=== PATIENT | male | born 1970 | race Caucasian/White ===

== ENCOUNTER 2018-07-09 15:38 | Inpatient (IN) | payer MEDICARE, MEDICAID ==
[2018-07-09] MEDS ORDERED: Lidocaine 2% Gel 5 mL TP ONE ×2 (16:56→17:05)
[2018-07-09 17:25] LABS: % EOSINOPHILS 2.8 % (0.0-5.0); % LYMPHOCYTES 33.4 % (20.0-50.0); % MONOCYTES 7.9 % (2.0-10.0); % NEUTROPHILS 55.9 % (40.0-80.0); EOSINOPHILE ABSOLUTE 0.3 Th/cmm (0.1-0.4); HEMATOCRIT 42.3 % (41.0-60); HEMOGLOBIN 14.2 gm/dL (12-16); LYMPHOCYTE ABSOLUTE 3.5 Th/cmm (1.5-3.0); MEAN CORPUSCULAR HEMOGLOBIN 33.9 pg (26.0-30.0); MEAN CORPUSCULAR HGB CONC 33.5 pg (28.0-36.0); MEAN PLATELET VOLUME 9.3 fl; MONOCYTE ABSOLUTE 0.8 Th/cmm (0.3-1.0); PLATELET COUNT 167 Th/cmm (150-400); RED BLOOD COUNT 4.19 Mil/cmm (4.30-5.70); WHITE BLOOD COUNT 10.6 Th/cmm (4.8-10.8)
[2018-07-09 17:40] LABS: ALB/GLOB RATIO 1.2 (1.0-1.8); ALBUMIN 3.8 gm/dL (4.2-5.5); ALKALINE PHOSPHATASE 56 U/L (34-104); ANION GAP 7.2 (7.0-16.0); BILIRUBIN,TOTAL 0.4 mg/dL (0.3-1.0); BUN - UREA NITROGEN 13 mg/dL (7-25); CALCIUM SERUM 8.9 mg/dL (8.6-10.3); CHLORIDE 96 mEq/L (98-107); CREATININE - SERUM 0.8 mg/dL (0.7-1.3); GFR AFRICAN-AMERICAN > 60.0 ml/min (>90); GFR NON AFRICAN-AMERICAN > 60.0 ml/min; GLUCOSE 91 mg/dL (70-105); MAGNESIUM 1.9 mg/dL (1.9-2.7); PHOSPHOROUS 3.1 mg/dL (2.5-5.0); POTASSIUM SERUM 4.2 mEq/L (3.5-5.1); SGOT 19 U/L (13-39); SGPT/ALT 18 U/L (7-52); SODIUM SERUM 127 mEq/L (136-145); TOTAL PROTEIN,SERUM 6.9 gm/dL (6.0-8.3)
[2018-07-09 18:27] LABS: URINE SOURCE CLEAN C
[2018-07-09 18:30] LABS: URINE BILIRUBIN NEGATIVE (NEGATIVE); URINE BLOOD NEGATIVE (NEGATIVE); URINE GLUCOSE (UA) NEGATIVE (NEGATIVE); URINE KETONE NEGATIVE (NEGATIVE); URINE LEUKOCYTE ESTERASE NEGATIVE (NEGATIVE); URINE NITRATE NEGATIVE (NEGATIVE); URINE PROTEIN NEGATIVE (NEGATIVE); URINE UROBILINOGEN 0.2 E.U./dL (0.2 - 1.0)
[2018-07-09 18:39] LABS: URINE CLARITY CLEAR (CLEAR); URINE COLOR YELLOW; URINE MICROSCOPIC INDICATED? YES
[2018-07-09 18:41] LABS: URINE BACTERIA OCCASIONAL /hpf (NONE SEEN); URINE EPITHELIAL CELLS OCCASIONAL /lpf (FEW); URINE RBC NONE SEEN /hpf (0-5); URINE WBC 0-2 /hpf (0-5)
[2018-07-09] MEDS ORDERED: cefTRIAXone 1 GM in Sodium Chloride 0.9% 50 ML IV ONE (18:45)
[2018-07-09] MEDS ORDERED: Sodium Chloride 0.9% 1,000 ML IV ONE (18:45)
[2018-07-09 18:48] LABS: AMPHETAMINE URINE NEGATIVE (NEGATIVE); BARBITURATES URINE NEGATIVE (NEGATIVE); BENZODIAZEPINES QUAL URINE POSITIVE (NEGATIVE); COCAINE METABOLITE QUAL URINE NEGATIVE (NEGATIVE); METHAMPHETAMINES QUAL URINE NEGATIVE (NEGATIVE); PHENCYCLIDINE (PCP) URINE NEGATIVE (NEGATIVE); TRICYCLICS (TCA) QUAL. URINE POSITIVE (NEGATIVE)
[2018-07-09 18:49] LABS: CANNABINOID THC NEGATIVE (NEGATIVE); METHADONE URINE NEGATIVE (NEGATIVE); OPIATES (MORPHINE) QUAL. URINE NEGATIVE (NEGATIVE)
--- NOTE | 2018-07-09 19:24 | ED Physician Chart ---
ED Chief Complaint/HPI - Patient Information Date Seen:: 07/09/18 Time Seen:: 15:52 Chief Complaint:: self-harming behavior History of Present Illness:: self-harming behavior in a man who was committed to the hospital the last time that he beat his head against the wall. Allergies:: Allergies Allergy/AdvReac Type Severity Reaction Status Date / Time No Known Allergies Allergy Verified 08/30/16 09:44 Vitals:: Vital Signs - 8 hr 07/09/18 15:52 Temp 97.7 F HR 87 RR 16 BP 130/76 O2 Sat % 98 Historian:: EMS, Medical Records Review:: Nurse's Note Reviewed, Transfer documents Reviewed ED Review of Systems - Review of Systems General/Constitutional: No fever, No chills, No weight loss, No weakness, No diaphoresis, No edema, No loss of appetite Skin: Other (right scalp lacerations) Head: No headache, No light-headedness Eyes: No loss of vision, No pain, No diplopia ENT: No earache, No nasal drainage, No sore throat, No tinnitus Neck: No neck pain, No swelling, No thyromegaly, No stiffness, No mass noted Cardio Vascular: No chest pain, No palpitations, No PND, No orthopnea, No edema Pulmonary: No SOB, No cough, No sputum, No wheezing GI: No nausea, No vomiting, No diarrhea, No pain, No melena, No hematochezia, No constipation, No hematemesis G/U: No dysuria, No frequency, No hematuria Musculoskeletal: No bone or joint pain, No back pain, No muscle pain Endocrine: No polyuria, No polydipsia Psychiatric: Prior psych history, No depression, Anxiety, No suicidal ideation, Other (self-harming behavior) Hematopoietic: No bruising, No lymphadenopathy Allergic/Immuno: No urticaria, No angioedema Neurological: No syncope, No focal symptoms, No weakness, No paresthesia, No headache, No seizure, No dizziness, No confusion, No vertigo ED Past Medical History - Past Medical History Obtainable: No Past Medical History: Asthma/COPD, Other (hyperosmolality and hypernatremia; difficulty in walking; muscle weakness) Psychiatricy History: Schizophrenia, Other (schizoaffective disorder; anxiety disorder) Family Medical History - Family Member Mother History Unknown: Yes Ethnicity: Non- ED Physical Exam - Physical Examination General/Constitutional: Awake, Well-developed, well-nourished Other Gen/Cons comments:: states that he has amnesia from slamming his head up against the wall. Other Head comments:: scalp lacerations on the right parietal occipital scalp lacerations that measure a total of 6 cm in length. lacerations are stellate. Eyes: Lids, conjuctiva normal, PERRL, EOMI Skin: Well hydrated Other Skin comments:: sxc ENMT: External ears, nose nl Neck: Nontender, No nuchal rigidity Respiratory: Nl effort/Exclusion, Clear to Auscultation Cardio Vascular: RRR GI: No tenderness/rebounding/guarding : No CVA tenderness Extremities: No tenderness or effusion Neuro/Psych: Alert/oriented Misc: Normal back ED Labs/Radiology/EKG Results - Lab Results Results: Laboratory Tests 07/09/18 07/09/18 07/09/18 17:00 17:00 17:15 WBC 10.6 RBC 4.19 L Hgb 14.2 Hct 42.3 MCV 101.0 H MCH 33.9 H MCHC Differential 33.5 RDW 12.0 Plt Count 167 MPV 9.3 Neutrophils % 55.9 Lymphocytes % 33.4 Monocytes % 7.9 Eosinophils % 2.8 Basophils % 0.0 Sodium Potassium Chloride Carbon Dioxide Anion Gap BUN Creatinine Est GFR ( Amer) Est GFR (Non-Af Amer) BUN/Creatinine Ratio Glucose Calcium Phosphorus Magnesium Total Bilirubin AST ALT Alkaline Phosphatase Total Protein Albumin Globulin Albumin/Globulin Ratio Urine Source CLEAN C Urine Color YELLOW Urine Clarity CLEAR Urine pH 7.0 Ur Specific [place] <= 1.005 Urine Protein NEGATIVE Urine Glucose (UA) NEGATIVE Urine Ketones NEGATIVE Urine Blood NEGATIVE Urine Nitrate NEGATIVE Urine Bilirubin NEGATIVE Urine Urobilinogen 0.2 Ur Leukocyte Esterase NEGATIVE Urine RBC NONE SEEN Urine WBC 0-2 Ur Epithelial Cells OCCASIONAL Urine Bacteria OCCASIONAL Urine Opiates Screen NEGATIVE Urine Methadone Screen NEGATIVE Ur Barbiturates Screen NEGATIVE Ur Tricyclics Screen POSITIVE H Ur Phencyclidine Scrn NEGATIVE Amphetamines Screen NEGATIVE U Methamphetamines Scrn NEGATIVE U Benzodiazepines Scrn POSITIVE H U Cocaine Metab Screen NEGATIVE U Cannabinoids Screen NEGATIVE 07/09/18 17:15 WBC RBC Hgb Hct MCV MCH MCHC Differential RDW Plt Count MPV Neutrophils % Lymphocytes % Monocytes % Eosinophils % Basophils % Sodium 127 L Potassium 4.2 Chloride 96 L Carbon Dioxide 28.0 Anion Gap 7.2 BUN 13 Creatinine 0.8 Est GFR ( Amer) > 60.0 Est GFR (Non-Af Amer) > 60.0 BUN/Creatinine Ratio 16.3 Glucose 91 Calcium 8.9 Phosphorus 3.1 Magnesium 1.9 Total Bilirubin 0.4 AST 19 ALT 18 Alkaline Phosphatase 56 Total Protein 6.9 Albumin 3.8 L Globulin 3.1 Albumin/Globulin Ratio 1.2 Urine Source Urine Color Urine Clarity Urine pH Ur Specific [place] Urine Protein Urine Glucose (UA) Urine Ketones Urine Blood Urine Nitrate Urine Bilirubin Urine Urobilinogen Ur Leukocyte Esterase Urine RBC Urine WBC Ur Epithelial Cells Urine Bacteria Urine Opiates Screen Urine Methadone Screen Ur Barbiturates Screen Ur Tricyclics Screen Ur Phencyclidine Scrn Amphetamines Screen U Methamphetamines Scrn U Benzodiazepines Scrn U Cocaine Metab Screen U Cannabinoids Screen ED Assessment - Assessment General Assessment: patient is resting comfortably. Assessment/Comments:: sign out given to Dr. Warren. I placed the patient on a 5150 72 hour hold since he self-harmed himself, and, according to Petrona Thayer, he was committed to a mental facility when he last slammed his head against the wall. sutures should be removed in 7 to 10 days. wound care should be performed with hydrogen peroxide and antibiotic ointment. sign out given to Dr. Warren at 7:10 p.m. - Procedures Procedures:: scalp lacerations on the right parietal occipital scalp lacerations that measure a total of 6 cm in length. lacerations are stellate. Informed Consent: Procedure/risk/benefits explained by MD: Yes Location:: scalp lacerations on the right parietal occipital scalp lacerations that measure a total of 6 cm in length. lacerations are stellate. Laceration Type:: Complex Wound Length: 6 m Prep/Irrigation:: betadine prep. sterile saline irrigation. Inspection: No dirt/debris, NO FB Local Anesthetic:: 1% lidocaine with epinephrine 4 cc Suture Type and #: 2-0 nylons ED Septic Shock - . Is Septic Shock (SBP<90, OR Lactate>4 mmol\L) present?: No - <6hrs of presentation: Vital Signs: Vital Signs - 8 hr 07/09/18 15:52 Temp 97.7 F HR 87 RR 16 BP 130/76 O2 Sat % 98 ED Reassessment (Disposition) - Reassessment Reassessment Condition:: Unchanged - Diagnosis Diagnosis:: Self-harming behavior Schizoaffective disorder Anxiety disorder Schizophrenia, unspecified. Difficulty in walking Muscle weakness (generalized) - Patient Disposition Condition at Disposition:: Stable, Unchanged
[2018-07-09] MEDS ORDERED: Sodium Chloride 0.9% 1,000 ML IV SCH (22:30)
[2018-07-10 05:11] LABS: % BASOPHILS 0.9 % (0.0-2.0); % EOSINOPHILS 5.8 % (0.0-5.0); % MONOCYTES 12.8 % (2.0-10.0); % NEUTROPHILS 47.5 % (40.0-80.0); BASOPHILE ABSOLUTE 0.1 Th/cumm (0-0.2); EOSINOPHILE ABSOLUTE 0.5 Th/cmm (0.1-0.4); HEMOGLOBIN 14.3 gm/dL (12-16); MEAN CELL VOLUME 98.9 fl (80-99); MEAN CORPUSCULAR HEMOGLOBIN 32.9 pg (26.0-30.0); MEAN CORPUSCULAR HGB CONC 33.3 pg (28.0-36.0); MEAN PLATELET VOLUME 9.6 fl; MONOCYTE ABSOLUTE 1.2 Th/cmm (0.3-1.0); NEUTROPHILE ABSOLUTE 4.2 Th/cmm (1.8-8.0); PLATELET COUNT 170 Th/cmm (150-400); RED BLOOD COUNT 4.35 Mil/cmm (4.30-5.70); RED CELL DISTRIBUTION WIDTH 12.1 % (11.5-20.0)
[2018-07-10 05:34] LABS: ANION GAP 8.2 (7.0-16.0); BUN - UREA NITROGEN 10 mg/dL (7-25); CALCIUM SERUM 8.6 mg/dL (8.6-10.3); CHLORIDE 105 mEq/L (98-107); CHOLESTEROL 104 mg/dL (<200); CREATININE - SERUM 0.7 mg/dL (0.7-1.3); GFR AFRICAN-AMERICAN > 60.0 ml/min (>90); GFR NON AFRICAN-AMERICAN > 60.0 ml/min; GLUCOSE 88 mg/dL (70-105); HDL -HIGH DENSITY LIPOPROTEIN 48 mg/dL (23-92); POTASSIUM SERUM 4.2 mEq/L (3.5-5.1); SODIUM SERUM 134 mEq/L (136-145); TRIGLYCERIDES 131 mg/dL (<150)
--- NOTE | 2018-07-10 08:28 | Diagnostic Imaging Report ---
CT scan of the brain without intravenous contrast HISTORY: Headache, trauma, amnesia Total DLP equals 706 CTDI equals 39.8 Axial sections were obtained from the base of the skull the vertex. There is prominence of the ventricular system along with prominence of cerebral sulci and subarachnoid cisterns reflecting a mild degree of cerebral atrophy. No acute parenchymal abnormalities. No intracerebral hemorrhage. No mass effect or shift of midline structures. No extra-axial masses or abnormal fluid collections. Soft tissue swelling noted over the high right posterior parietal region of the skull. Mild mucosal thickening seen through the ethmoid sinuses. IMPRESSION: 1. No acute intracerebral abnormalities 2. Mild cerebral atrophy 3. Mild mucosal thickening through the ethmoid sinuses 4. Soft tissue swelling over the high right parietal region of the skull.
[2018-07-10 09:52] VITALS: BP 107/74
--- NOTE | 2018-07-10 12:12 | History and Physical ---
History of Present Illness - HPI Chief Complaint: low sodium , psychosis HPI: This is a 47-year old male [facility] unit presented to the ER for self inflicted head laceration, in the ER patient was found with a sodium level of 127. Vital Signs: Last Vital Signs Temp 97.1 F 07/10/18 10:12 Pulse 67 07/10/18 10:12 Resp 18 07/10/18 10:12 BP 128/80 07/10/18 10:12 Pulse Ox 100 07/10/18 10:12 Past Medical History GI: Report: GERD Psych: Report: Psychosis Family Medical History - Family Member Mother History Unknown: Yes Ethnicity: Non- Social History Smoke: 1 pack per day Alcohol: Occassional Drugs: None Lives: Alone - Medications Home Medications: Home Medication Medication Instructions Recorded Type Ferrous Sulfate [Iron] 1 tab PO DAILY 08/30/16 History QUEtiapine Fumarate [SEROquel] 200 mg PO HS 08/30/16 History Sucralfate [Carafate] 1 gm PO TID 08/30/[address] [Depakote DR] 500 mg PO BID 07/09/18 History Fish Oil [[place] 3] 1,000 mg PO DAILY 07/09/18 History Pantoprazole [Protonix] 40 mg PO DAILY 07/09/18 History QUEtiapine Fumarate [SEROquel] 50 mg PO BID 07/09/18 History - Allergies Allergies/Adverse Reactions: Allergies Allergy/AdvReac Type Severity Reaction Status Date / Time No Known Allergies Allergy Verified 08/30/16 09:44 Review of Systems - Review of Systems Constitutional: Report: Weakness Eyes: Report: No Significant Respiratory: Report: No Significant Cardiovascular: Report: No Significant Neurological: Report: Weakness Physical Exam - Physical Exam HEENT: Report: Ears Nose Throat within normal limits Neck: Report: Within normal limits Cardiovascular Systems: Report: +s1/s2 noted, Regular, Rate and Rhythm Respiratory: Report: Breath Sounds are within normal limits Abdomen: Report: Non-tender to palpation Back: Report: Inspection of back is within normal limits. Skin: Report: Color of skin is within normal limits, Warm, Dry Neuro/Psych: Report: Mood affect is within normal limits - Lab Results All Lab Results last 24 hours: Laboratory Results - last 24 hr 07/09/18 07/09/18 07/09/18 17:00 17:00 17:15 WBC 10.6 RBC 4.19 L Hgb 14.2 Hct 42.3 MCV 101.0 H MCH 33.9 H MCHC Differential 33.5 RDW 12.0 Plt Count 167 MPV 9.3 Neutrophils % 55.9 Lymphocytes % 33.4 Monocytes % 7.9 Eosinophils % 2.8 Basophils % 0.0 Sodium Potassium Chloride Carbon Dioxide Anion Gap BUN Creatinine Est GFR ( Amer) Est GFR (Non-Af Amer) BUN/Creatinine Ratio Glucose POC Glucose Calcium Phosphorus Magnesium Total Bilirubin AST ALT Alkaline Phosphatase Total Protein Albumin Globulin Albumin/Globulin Ratio Triglycerides Cholesterol LDL Cholesterol Direct HDL Cholesterol TSH Urine Source CLEAN C Urine Color YELLOW Urine Clarity CLEAR Urine pH 7.0 Ur Specific [place] <= 1.005 Urine Protein NEGATIVE Urine Glucose (UA) NEGATIVE Urine Ketones NEGATIVE Urine Blood NEGATIVE Urine Nitrate NEGATIVE Urine Bilirubin NEGATIVE Urine Urobilinogen 0.2 Ur Leukocyte Esterase NEGATIVE Urine RBC NONE SEEN Urine WBC 0-2 Ur Epithelial Cells OCCASIONAL Urine Bacteria OCCASIONAL Urine Opiates Screen NEGATIVE Urine Methadone Screen NEGATIVE Ur Barbiturates Screen NEGATIVE Ur Tricyclics Screen POSITIVE H Ur Phencyclidine Scrn NEGATIVE Amphetamines Screen NEGATIVE U Methamphetamines Scrn NEGATIVE U Benzodiazepines Scrn POSITIVE H U Cocaine Metab Screen NEGATIVE U Cannabinoids Screen NEGATIVE 07/09/18 07/09/18 07/10/18 17:15 17:15 04:40 WBC 9.0 RBC 4.35 Hgb 14.3 Hct 43.0 MCV 98.9 MCH 32.9 H MCHC Differential 33.3 RDW 12.1 Plt Count 170 MPV 9.6 Neutrophils % 47.5 Lymphocytes % 33.0 Monocytes % 12.8 H Eosinophils % 5.8 H Basophils % 0.9 Sodium 127 L Potassium 4.2 Chloride 96 L Carbon Dioxide 28.0 Anion Gap 7.2 BUN 13 Creatinine 0.8 Est GFR ( Amer) > 60.0 Est GFR (Non-Af Amer) > 60.0 BUN/Creatinine Ratio 16.3 Glucose 91 POC Glucose Calcium 8.9 Phosphorus 3.1 Magnesium 1.9 Total Bilirubin 0.4 AST 19 ALT 18 Alkaline Phosphatase 56 Total Protein 6.9 Albumin 3.8 L Globulin 3.1 Albumin/Globulin Ratio 1.2 Triglycerides Cholesterol LDL Cholesterol Direct HDL Cholesterol TSH 1.48 Urine Source Urine Color Urine Clarity Urine pH Ur Specific [place] Urine Protein Urine Glucose (UA) Urine Ketones Urine Blood Urine Nitrate Urine Bilirubin Urine Urobilinogen Ur Leukocyte Esterase Urine RBC Urine WBC Ur Epithelial Cells Urine Bacteria Urine Opiates Screen Urine Methadone Screen Ur Barbiturates Screen Ur Tricyclics Screen Ur Phencyclidine Scrn Amphetamines Screen U Methamphetamines Scrn U Benzodiazepines Scrn U Cocaine Metab Screen U Cannabinoids Screen 07/10/18 07/10/18 07/10/18 04:40 04:40 07:48 WBC RBC Hgb Hct MCV MCH MCHC Differential RDW Plt Count MPV Neutrophils % Lymphocytes % Monocytes % Eosinophils % Basophils % Sodium 134 L Potassium 4.2 Chloride 105 Carbon Dioxide 25.0 Anion Gap 8.2 BUN 10 Creatinine 0.7 Est GFR ( Amer) > 60.0 Est GFR (Non-Af Amer) > 60.0 BUN/Creatinine Ratio 14.3 Glucose 88 POC Glucose 104 Calcium 8.6 Phosphorus Magnesium Total Bilirubin AST ALT Alkaline Phosphatase Total Protein Albumin Globulin Albumin/Globulin Ratio Triglycerides 131 Cholesterol 104 LDL Cholesterol Direct 36 L HDL Cholesterol 48 TSH 2.70 Urine Source Urine Color Urine Clarity Urine pH Ur Specific [place] Urine Protein Urine Glucose (UA) Urine Ketones Urine Blood Urine Nitrate Urine Bilirubin Urine Urobilinogen Ur Leukocyte Esterase Urine RBC Urine WBC Ur Epithelial Cells Urine Bacteria Urine Opiates Screen Urine Methadone Screen Ur Barbiturates Screen Ur Tricyclics Screen Ur Phencyclidine Scrn Amphetamines Screen U Methamphetamines Scrn U Benzodiazepines Scrn U Cocaine Metab Screen U Cannabinoids Screen - Assessment Assessment: Current Active Problems Problem Status Onset OCCIPITAL LACERATION Acute hyponatremia s/p self inflicted post scalp laceration psychosis - Plan Plan: ivf for hydration nephrology consultation psych consultation 1:1 sitter continue the rest of the orders
[2018-07-10] MEDS: Sodium Chloride 0.9% 1,000 ML IV SCH (13:14)
--- NOTE | 2018-07-10 13:18 | Consultation ---
Consult Note - Consult Note Service Date: 07/10/18 Referring Physician: Adama Pool Consult Note: PHYSICIAN Consultation Note: Date of Admission: 07/09/18 Purpose of Consultation: " Head wound. Chief Complaint: Patient ANTWAN MITCHELL was admitted to [facility] Medical[facility] Surgical Unit I with UTI,HYPONATREMIA. History of Present Illness: 47-year-old male was banging his head and developed wound on right parietal area of his scalp. On initial evaluation, he was afebrile. His WBC count was 10,600. Sepsis workup was negative. Patient is a poor historian. Past Medical History: Unknown at this time. Allergies Allergy/AdvReac Type Severity Reaction Status Date / Time No Known Allergies Allergy Verified 08/30/16 09:44 Vital Signs Temp 97.1 F 07/10/18 10:12 Pulse 67 07/10/18 10:12 Resp 18 07/10/18 10:12 BP 128/80 07/10/18 10:12 Pulse Ox 100 07/10/18 10:12 Intake & Output 07/09/18 07/10/18 07/10/18 18:59 06:59 18:59 Weight (lbs) 68.039 kg 63.957 kg Other: Weight Source Estimated Bedscale Laboratory Results - last 24 hr 07/09/18 07/09/18 07/09/18 17:00 17:00 17:15 WBC 10.6 RBC 4.19 L Hgb 14.2 Hct 42.3 MCV 101.0 H MCH 33.9 H MCHC Differential 33.5 RDW 12.0 Plt Count 167 MPV 9.3 Neutrophils % 55.9 Lymphocytes % 33.4 Monocytes % 7.9 Eosinophils % 2.8 Basophils % 0.0 Sodium Potassium Chloride Carbon Dioxide Anion Gap BUN Creatinine Est GFR ( Amer) Est GFR (Non-Af Amer) BUN/Creatinine Ratio Glucose POC Glucose Calcium Phosphorus Magnesium Total Bilirubin AST ALT Alkaline Phosphatase Total Protein Albumin Globulin Albumin/Globulin Ratio Triglycerides Cholesterol LDL Cholesterol Direct HDL Cholesterol TSH Urine Source CLEAN C Urine Color YELLOW Urine Clarity CLEAR Urine pH 7.0 Ur Specific [place] <= 1.005 Urine Protein NEGATIVE Urine Glucose (UA) NEGATIVE Urine Ketones NEGATIVE Urine Blood NEGATIVE Urine Nitrate NEGATIVE Urine Bilirubin NEGATIVE Urine Urobilinogen 0.2 Ur Leukocyte Esterase NEGATIVE Urine RBC NONE SEEN Urine WBC 0-2 Ur Epithelial Cells OCCASIONAL Urine Bacteria OCCASIONAL Urine Opiates Screen NEGATIVE Urine Methadone Screen NEGATIVE Ur Barbiturates Screen NEGATIVE Ur Tricyclics Screen POSITIVE H Ur Phencyclidine Scrn NEGATIVE Amphetamines Screen NEGATIVE U Methamphetamines Scrn NEGATIVE U Benzodiazepines Scrn POSITIVE H U Cocaine Metab Screen NEGATIVE U Cannabinoids Screen NEGATIVE 07/09/18 07/09/18 07/10/18 17:15 17:15 04:40 WBC 9.0 RBC 4.35 Hgb 14.3 Hct 43.0 MCV 98.9 MCH 32.9 H MCHC Differential 33.3 RDW 12.1 Plt Count 170 MPV 9.6 Neutrophils % 47.5 Lymphocytes % 33.0 Monocytes % 12.8 H Eosinophils % 5.8 H Basophils % 0.9 Sodium 127 L Potassium 4.2 Chloride 96 L Carbon Dioxide 28.0 Anion Gap 7.2 BUN 13 Creatinine 0.8 Est GFR ( Amer) > 60.0 Est GFR (Non-Af Amer) > 60.0 BUN/Creatinine Ratio 16.3 Glucose 91 POC Glucose Calcium 8.9 Phosphorus 3.1 Magnesium 1.9 Total Bilirubin 0.4 AST 19 ALT 18 Alkaline Phosphatase 56 Total Protein 6.9 Albumin 3.8 L Globulin 3.1 Albumin/Globulin Ratio 1.2 Triglycerides Cholesterol LDL Cholesterol Direct HDL Cholesterol TSH 1.48 Urine Source Urine Color Urine Clarity Urine pH Ur Specific [place] Urine Protein Urine Glucose (UA) Urine Ketones Urine Blood Urine Nitrate Urine Bilirubin Urine Urobilinogen Ur Leukocyte Esterase Urine RBC Urine WBC Ur Epithelial Cells Urine Bacteria Urine Opiates Screen Urine Methadone Screen Ur Barbiturates Screen Ur Tricyclics Screen Ur Phencyclidine Scrn Amphetamines Screen U Methamphetamines Scrn U Benzodiazepines Scrn U Cocaine Metab Screen U Cannabinoids Screen 07/10/18 07/10/18 07/10/18 04:40 04:40 07:48 WBC RBC Hgb Hct MCV MCH MCHC Differential RDW Plt Count MPV Neutrophils % Lymphocytes % Monocytes % Eosinophils % Basophils % Sodium 134 L Potassium 4.2 Chloride 105 Carbon Dioxide 25.0 Anion Gap 8.2 BUN 10 Creatinine 0.7 Est GFR ( Amer) > 60.0 Est GFR (Non-Af Amer) > 60.0 BUN/Creatinine Ratio 14.3 Glucose 88 POC Glucose 104 Calcium 8.6 Phosphorus Magnesium Total Bilirubin AST ALT Alkaline Phosphatase Total Protein Albumin Globulin Albumin/Globulin Ratio Triglycerides 131 Cholesterol 104 LDL Cholesterol Direct 36 L HDL Cholesterol 48 TSH 2.70 Urine Source Urine Color Urine Clarity Urine pH Ur Specific [place] Urine Protein Urine Glucose (UA) Urine Ketones Urine Blood Urine Nitrate Urine Bilirubin Urine Urobilinogen Ur Leukocyte Esterase Urine RBC Urine WBC Ur Epithelial Cells Urine Bacteria Urine Opiates Screen Urine Methadone Screen Ur Barbiturates Screen Ur Tricyclics Screen Ur Phencyclidine Scrn Amphetamines Screen U Methamphetamines Scrn U Benzodiazepines Scrn U Cocaine Metab Screen U Cannabinoids Screen Home Medication Medication Instructions Recorded Type Ferrous Sulfate [Iron] 1 tab PO DAILY 08/30/16 History QUEtiapine Fumarate [SEROquel] 200 mg PO HS 08/30/16 History Sucralfate [Carafate] 1 gm PO TID 08/30/[address] [Depakote DR] 500 mg PO BID 07/09/18 History Fish Oil [[place] 3] 1,000 mg PO DAILY 07/09/18 History Pantoprazole [Protonix] 40 mg PO DAILY 07/09/18 History QUEtiapine Fumarate [SEROquel] 50 mg PO BID 07/09/18 History Current Medications Generic Name Dose Route Start Last Admin Trade Name Freq PRN Reason Stop Dose Admin Divalproex Sodium 500 mg 07/10/18 17:[address] PO 09/08/18 16:59 BID [facility] Protocol Ferrous Sulfate 325 mg 07/11/18 09:00 Iron PO 09/09/18 08:59 DAILY [facility] Fish Oil 1,000 mg 07/11/18 09:00 [place] 3 PO 09/09/18 08:59 DAILY [facility] Sodium Chloride 1,000 mls @ 40 mls/hr 07/10/18 10:45 Nacl 0.9% IV 09/08/18 10:44 .Q24H ANIL Pantoprazole Sodium 40 mg 07/11/18 09:00 Protonix PO 09/09/18 08:59 DAILY [facility] Quetiapine Fumarate 200 mg 07/10/18 21:00 Seroquel PO 09/08/18 20:59 HS [facility] Protocol Quetiapine Fumarate 50 mg 07/10/18 17:00 Seroquel PO 09/08/18 16:59 BID [facility] Protocol Sucralfate 1 gm 07/10/18 14:00 Carafate PO 09/08/18 13:59 TID [facility] Review of Systems: A 12 point ROS was reviewed with the pertinent positive and negatives noted in the HPI. Social History Smoking Status Unknown if ever smoked Alcohol: Unknown. Family Medical History Unknown. Physical Exam: General: Comfortable lean and thin male area and a poor hygiene. HEENT: Head: Normocytic. Has traumatic wound on right parietal area Oral cavity : Moist, pink tongue. Eyes: Pallor is present icterus. Neck: Supple, no JVD. No use of X his neck muscles. Cardio: S1 and S2 within normal limits regular rhythm. Respiratory: Vesicular breath sound. No crackles no wheezing. Abdominal: Soft, nontender nondistended bowel sounds present. Genital/Urinary: Deferred. Extremities: No cyanosis, no clubbing no edema. Neurological: Alert, awake. Communicates well. Assessment: 1. Head wound. 2. Psychosis. Plan: No need of antibiotic at this time. Wound care. Patient has very poor hygiene and he needs to maintain good hygiene. Thank you, Dr. Pool, for involving me in taking care of this patient Signed, Malick Villegas M.D. [id number]
--- NOTE | 2018-07-10 20:27 | Consultation ---
DATE OF CONSULTATION: 07/10/2018 PSYCHIATRIC CONSULTATION PHYSICIAN REQUESTING CONSULTATION: Dr. Coronel. REASON FOR CONSULTATION: Psychosis. HISTORY OF PRESENT ILLNESS: This patient is a 47-year-old male, resident of [facility]. The patient is reported to have been agitated and self-abusive and has been hitting his head on the wall and ____ a laceration of the head. The patient is also at the time of the evaluation has been found to have a low sodium of 127. At the time of the evaluation, the patient has been on Seroquel and Depakote, but the patient is stating that he does not need any medications. PAST PSYCHIATRIC HISTORY: The patient had been hospitalized in the past, but the patient is not able to provide the details. MEDICAL HISTORY AND PHYSICAL EXAMINATION: Done by Dr. Meron Pollard and is noted to be significant for hyponatremia and laceration on the head. LEGAL PROBLEMS: None at this time. PHYSICAL OR SEXUAL ABUSE HISTORY: None. STRENGTHS AND ASSETS: The patient is motivated. MENTAL STATUS EXAMINATION: The patient is a 47-year-old disheveled, thin built, superficially cooperative. Eye contact is poor. Mood is noted to be irritable. Affect is constricted. Insight and judgment at this time are noted to be still impaired. Impulse control is noted to be limited. The patient has been having difficult time to cope with the stress. The patient is on 1:1 observation because of the suicidal ideation and self-abusive behavior. DIAGNOSTIC IMPRESSION: AXIS I: Schizoaffective disorder. IMMEDIATE TREATMENT PLAN: The patient is going to be observed on the inpatient unit. Continued on the Seroquel and Depakote. ESTIMATED LENGTH OF STAY: 3-5 days. DISCHARGE CRITERIA: When the patient is no longer a threat to self or others and be able to cope up with the stress. JOB# [id number]
[2018-07-11 05:49] LABS: % BASOPHILS 4.2 % (0.0-2.0); % EOSINOPHILS 5.3 % (0.0-5.0); % LYMPHOCYTES 28.8 % (20.0-50.0); % MONOCYTES 12.7 % (2.0-10.0); BASOPHILE ABSOLUTE 0.4 Th/cumm (0-0.2); EOSINOPHILE ABSOLUTE 0.5 Th/cmm (0.1-0.4); HEMOGLOBIN 14.4 gm/dL (12-16); LYMPHOCYTE ABSOLUTE 2.9 Th/cmm (1.5-3.0); MEAN CELL VOLUME 98.9 fl (80-99); MEAN CORPUSCULAR HEMOGLOBIN 33.1 pg (26.0-30.0); MEAN CORPUSCULAR HGB CONC 33.4 pg (28.0-36.0); MEAN PLATELET VOLUME 9.8 fl; MONOCYTE ABSOLUTE 1.3 Th/cmm (0.3-1.0); NEUTROPHILE ABSOLUTE 4.8 Th/cmm (1.8-8.0); PLATELET COUNT 164 Th/cmm (150-400); RED BLOOD COUNT 4.34 Mil/cmm (4.30-5.70); RED CELL DISTRIBUTION WIDTH 11.9 % (11.5-20.0); WHITE BLOOD COUNT 9.9 Th/cmm (4.8-10.8)
[2018-07-11 06:06] LABS: ALB/GLOB RATIO 1.2 (1.0-1.8); ALBUMIN 3.5 gm/dL (4.2-5.5); ALKALINE PHOSPHATASE 51 U/L (34-104); ANION GAP 7.6 (7.0-16.0); BILIRUBIN,TOTAL 0.4 mg/dL (0.3-1.0); BUN - UREA NITROGEN 10 mg/dL (7-25); CALCIUM SERUM 8.5 mg/dL (8.6-10.3); CARBON DIOXIDE 25.5 mEq/L (21.0-31.0); CHLORIDE 103 mEq/L (98-107); CREATININE - SERUM 0.6 mg/dL (0.7-1.3); GFR AFRICAN-AMERICAN > 60.0 ml/min (>90); GFR NON AFRICAN-AMERICAN > 60.0 ml/min; GLUCOSE 93 mg/dL (70-105); POTASSIUM SERUM 4.1 mEq/L (3.5-5.1); SGOT 15 U/L (13-39); SGPT/ALT 16 U/L (7-52); SODIUM SERUM 132 mEq/L (136-145); TOTAL PROTEIN,SERUM 6.4 gm/dL (6.0-8.3); URIC ACID 3.8 mg/dL (4.4-7.6)
[2018-07-11] MEDS: Pantoprazole 40 mg EC Tab PO SCH (08:51)
[2018-07-11] MEDS: Fish Oil 1,000 MG SGL PO SCH (08:51)
[2018-07-11] MEDS: Ferrous Sulfate 325 MG TAB PO SCH (08:52)
--- NOTE | 2018-07-11 11:36 | Internal Medicine Prog Note ---
Internal Medicine Subjective - Subjective Patient seen and examined:: other (laceration in scalp) Patient is:: awake Per staff patient has:: no adverse event Internal Medicine Objective - Results Result Diagrams: 07/11/18 05:20 07/11/18 05:20 Recent Labs: Laboratory Last Values WBC 9.9 Th/cmm (4.8-10.8) 07/11/18 05:20 RBC 4.34 Mil/cmm (4.30-5.70) 07/11/18 05:20 Hgb 14.4 gm/dL (12-16) 07/11/18 05:20 Hct 43.0 % (41.0-60) 07/11/18 05:20 MCV 98.9 fl (80-99) 07/11/18 05:20 MCH 33.1 pg (26.0-30.0) H 07/11/18 05:20 MCHC Differential 33.4 pg (28.0-36.0) 07/11/18 05:20 RDW 11.9 % (11.5-20.0) 07/11/18 05:20 Plt Count 164 Th/cmm (150-400) 07/11/18 05:20 MPV 9.8 fl 07/11/18 05:20 Neutrophils % 49.0 % (40.0-80.0) 07/11/18 05:20 Lymphocytes % 28.8 % (20.0-50.0) 07/11/18 05:20 Monocytes % 12.7 % (2.0-10.0) H 07/11/18 05:20 Eosinophils % 5.3 % (0.0-5.0) H 07/11/18 05:20 Basophils % 4.2 % (0.0-2.0) H 07/11/18 05:20 Sodium 132 mEq/L (136-145) L 07/11/18 05:20 Potassium 4.1 mEq/L (3.5-5.1) 07/11/18 05:20 Chloride 103 mEq/L (98-107) 07/11/18 05:20 Carbon Dioxide 25.5 mEq/L (21.0-31.0) 07/11/18 05:20 Anion Gap 7.6 (7.0-16.0) 07/11/18 05:20 BUN 10 mg/dL (7-25) 07/11/18 05:20 Creatinine 0.6 mg/dL (0.7-1.3) L 07/11/18 05:20 Est GFR ( Amer) > 60.0 ml/min (>90) 07/11/18 05:20 Est GFR (Non-Af Amer) > 60.0 ml/min 07/11/18 05:20 BUN/Creatinine Ratio 16.7 07/11/18 05:20 Glucose 93 mg/dL (70-105) 07/11/18 05:20 POC Glucose 104 MG/DL (70 - 105) 07/10/18 07:48 Uric Acid 3.8 mg/dL (4.4-7.6) L 07/11/18 05:20 Calcium 8.5 mg/dL (8.6-10.3) L 07/11/18 05:20 Phosphorus 3.1 mg/dL (2.5-5.0) 07/09/18 17:15 Magnesium 1.9 mg/dL (1.9-2.7) 07/09/18 17:15 Total Bilirubin 0.4 mg/dL (0.3-1.0) 07/11/18 05:20 AST 15 U/L (13-39) 07/11/18 05:20 ALT 16 U/L (7-52) 07/11/18 05:20 Alkaline Phosphatase 51 U/L (34-104) 07/11/18 05:20 Total Protein 6.4 gm/dL (6.0-8.3) 07/11/18 05:20 Albumin 3.5 gm/dL (4.2-5.5) L 07/11/18 05:20 Globulin 2.9 gm/dL 07/11/18 05:20 Albumin/Globulin Ratio 1.2 (1.0-1.8) 07/11/18 05:20 Triglycerides 131 mg/dL (<150) 07/10/18 04:40 Cholesterol 104 mg/dL (<200) 07/10/18 04:40 LDL Cholesterol Direct 36 mg/dL (75-193) L 07/10/18 04:40 HDL Cholesterol 48 mg/dL (23-92) 07/10/18 04:40 TSH 2.70 uIU/ml (0.34-5.60) 07/10/18 04:40 Urine Source CLEAN C 07/09/18 17:00 Urine Color YELLOW 07/09/18 17:00 Urine Clarity CLEAR (CLEAR) 07/09/18 17:00 Urine pH 7.0 (4.6 - 8.0) 07/09/18 17:00 Ur Specific [place] <= 1.005 (1.005-1.030) 07/09/18 17:00 Urine Protein NEGATIVE mg/dL (NEGATIVE) 07/09/18 17:00 Urine Glucose (UA) NEGATIVE mg/dL (NEGATIVE) 07/09/18 17:00 Urine Ketones NEGATIVE mg/dL (NEGATIVE) 07/09/18 17:00 Urine Blood NEGATIVE (NEGATIVE) 07/09/18 17:00 Urine Nitrate NEGATIVE (NEGATIVE) 07/09/18 17:00 Urine Bilirubin NEGATIVE (NEGATIVE) 07/09/18 17:00 Urine Urobilinogen 0.2 E.U./dL (0.2 - 1.0) 07/09/18 17:00 Ur Leukocyte Esterase NEGATIVE (NEGATIVE) 07/09/18 17:00 Urine RBC NONE SEEN /hpf (0-5) 07/09/18 17:00 Urine WBC 0-2 /hpf (0-5) 07/09/18 17:00 Ur Epithelial Cells OCCASIONAL /lpf (FEW) 07/09/18 17:00 Urine Bacteria OCCASIONAL /hpf (NONE SEEN) 07/09/18 17:00 Urine Opiates Screen NEGATIVE (NEGATIVE) 07/09/18 17:00 Urine Methadone Screen NEGATIVE (NEGATIVE) 07/09/18 17:00 Ur Barbiturates Screen NEGATIVE (NEGATIVE) 07/09/18 17:00 Ur Tricyclics Screen POSITIVE (NEGATIVE) H 07/09/18 17:00 Ur Phencyclidine Scrn NEGATIVE (NEGATIVE) 07/09/18 17:00 Amphetamines Screen NEGATIVE (NEGATIVE) 07/09/18 17:00 U Methamphetamines Scrn NEGATIVE (NEGATIVE) 07/09/18 17:00 U Benzodiazepines Scrn POSITIVE (NEGATIVE) H 07/09/18 17:00 U Cocaine Metab Screen NEGATIVE (NEGATIVE) 07/09/18 17:00 U Cannabinoids Screen NEGATIVE (NEGATIVE) 07/09/18 17:00 - Physical Exam Vitals and I&O: Vital Signs Temp 98.0 F 07/11/18 08:00 Pulse 68 07/11/18 08:00 Resp 18 07/11/18 08:00 BP 110/63 07/11/18 08:00 Pulse Ox 100 07/11/18 08:00 Intake & Output 07/10/18 07/11/18 07/11/18 18:59 06:59 18:59 Intake Total 600 240 Balance 600 240 Weight (lbs) 63.957 kg 63.957 kg Intake: Oral 600 240 Other: # Voids 5 3 # Bowel Movements 0 1 Weight Source Bedscale Bedscale Active Medications: Current Medications Divalproex Sodium (Depakote Dr) 500 mg PO BID [facility]; Protocol Stop: 09/08/18 16:59 Last Admin: 07/11/18 08:51 Dose: 500 mg Ferrous Sulfate (Iron) 325 mg PO DAILY [facility] Stop: 09/09/18 08:59 Last Admin: 07/11/18 08:52 Dose: 325 mg Fish Oil ([place] 3) 1,000 mg PO DAILY [facility] Stop: 09/09/18 08:59 Last Admin: 07/11/18 08:51 Dose: 1,000 mg Sodium Chloride (Nacl 0.9%) 1,000 mls @ 40 mls/hr IV .Q24H [facility] Stop: 09/08/18 10:44 Last Admin: 07/10/18 13:14 Dose: 40 mls/hr Pantoprazole Sodium (Protonix) 40 mg PO DAILY [facility] Stop: 09/09/18 08:59 Last Admin: 07/11/18 08:51 Dose: 40 mg Quetiapine Fumarate (Seroquel) 200 mg PO HS [facility]; Protocol Stop: 09/08/18 20:59 Quetiapine Fumarate (Seroquel) 50 mg PO BID [facility]; Protocol Stop: 09/08/18 16:59 Last Admin: 07/11/18 08:51 Dose: 50 mg Sucralfate (Carafate) 1 gm PO TID [facility] Stop: 09/08/18 13:59 Last Admin: 07/11/18 08:52 Dose: 1 gm General: alert Neck: Supple Lungs: CTAB Cardiovascular: Normal S1, Normal S2 Abdomen: soft, non-tender Extremities: clear, no edema Neurological: no change - Procedures Procedures: Procedures Procedure Code Date EGD DIAGNOSTIC BRUSH WASH 01508 06/02/11 INJECT/INFUSE NEC 99.29 07/18/12 OTHER ENDOSCOPY OF SM INTEST 45.13 06/02/11 PACKED CELL TRANSFUSION 99.04 03/22/11 THER/PROPH/DIAG INJ SC/IM 89953 07/18/12 Internal Medicine Assmt/Plan - Assessment Assessment: scalp laceration psychosis - Plan Plan: cpm
--- NOTE | 2018-07-11 13:23 | Infectious Disease Prog Note ---
Infectious Disease Subjective - Review of Systems Service Date: 07/11/18 Subjective: There is no new change, no fever. Infectious Disease Objective - Results Result Diagrams: 07/11/18 05:20 07/11/18 05:20 Recent Labs: Laboratory Last Values WBC 9.9 Th/cmm (4.8-10.8) 07/11/18 05:20 RBC 4.34 Mil/cmm (4.30-5.70) 07/11/18 05:20 Hgb 14.4 gm/dL (12-16) 07/11/18 05:20 Hct 43.0 % (41.0-60) 07/11/18 05:20 MCV 98.9 fl (80-99) 07/11/18 05:20 MCH 33.1 pg (26.0-30.0) H 07/11/18 05:20 MCHC Differential 33.4 pg (28.0-36.0) 07/11/18 05:20 RDW 11.9 % (11.5-20.0) 07/11/18 05:20 Plt Count 164 Th/cmm (150-400) 07/11/18 05:20 MPV 9.8 fl 07/11/18 05:20 Neutrophils % 49.0 % (40.0-80.0) 07/11/18 05:20 Lymphocytes % 28.8 % (20.0-50.0) 07/11/18 05:20 Monocytes % 12.7 % (2.0-10.0) H 07/11/18 05:20 Eosinophils % 5.3 % (0.0-5.0) H 07/11/18 05:20 Basophils % 4.2 % (0.0-2.0) H 07/11/18 05:20 Sodium 132 mEq/L (136-145) L 07/11/18 05:20 Potassium 4.1 mEq/L (3.5-5.1) 07/11/18 05:20 Chloride 103 mEq/L (98-107) 07/11/18 05:20 Carbon Dioxide 25.5 mEq/L (21.0-31.0) 07/11/18 05:20 Anion Gap 7.6 (7.0-16.0) 07/11/18 05:20 BUN 10 mg/dL (7-25) 07/11/18 05:20 Creatinine 0.6 mg/dL (0.7-1.3) L 07/11/18 05:20 Est GFR ( Amer) > 60.0 ml/min (>90) 07/11/18 05:20 Est GFR (Non-Af Amer) > 60.0 ml/min 07/11/18 05:20 BUN/Creatinine Ratio 16.7 07/11/18 05:20 Glucose 93 mg/dL (70-105) 07/11/18 05:20 POC Glucose 104 MG/DL (70 - 105) 07/10/18 07:48 Uric Acid 3.8 mg/dL (4.4-7.6) L 07/11/18 05:20 Calcium 8.5 mg/dL (8.6-10.3) L 07/11/18 05:20 Phosphorus 3.1 mg/dL (2.5-5.0) 07/09/18 17:15 Magnesium 1.9 mg/dL (1.9-2.7) 07/09/18 17:15 Total Bilirubin 0.4 mg/dL (0.3-1.0) 07/11/18 05:20 AST 15 U/L (13-39) 07/11/18 05:20 ALT 16 U/L (7-52) 07/11/18 05:20 Alkaline Phosphatase 51 U/L (34-104) 07/11/18 05:20 Total Protein 6.4 gm/dL (6.0-8.3) 07/11/18 05:20 Albumin 3.5 gm/dL (4.2-5.5) L 07/11/18 05:20 Globulin 2.9 gm/dL 07/11/18 05:20 Albumin/Globulin Ratio 1.2 (1.0-1.8) 07/11/18 05:20 Triglycerides 131 mg/dL (<150) 07/10/18 04:40 Cholesterol 104 mg/dL (<200) 07/10/18 04:40 LDL Cholesterol Direct 36 mg/dL (75-193) L 07/10/18 04:40 HDL Cholesterol 48 mg/dL (23-92) 07/10/18 04:40 TSH 2.70 uIU/ml (0.34-5.60) 07/10/18 04:40 Urine Source CLEAN C 07/09/18 17:00 Urine Color YELLOW 07/09/18 17:00 Urine Clarity CLEAR (CLEAR) 07/09/18 17:00 Urine pH 7.0 (4.6 - 8.0) 07/09/18 17:00 Ur Specific [place] <= 1.005 (1.005-1.030) 07/09/18 17:00 Urine Protein NEGATIVE mg/dL (NEGATIVE) 07/09/18 17:00 Urine Glucose (UA) NEGATIVE mg/dL (NEGATIVE) 07/09/18 17:00 Urine Ketones NEGATIVE mg/dL (NEGATIVE) 07/09/18 17:00 Urine Blood NEGATIVE (NEGATIVE) 07/09/18 17:00 Urine Nitrate NEGATIVE (NEGATIVE) 07/09/18 17:00 Urine Bilirubin NEGATIVE (NEGATIVE) 07/09/18 17:00 Urine Urobilinogen 0.2 E.U./dL (0.2 - 1.0) 07/09/18 17:00 Ur Leukocyte Esterase NEGATIVE (NEGATIVE) 07/09/18 17:00 Urine RBC NONE SEEN /hpf (0-5) 07/09/18 17:00 Urine WBC 0-2 /hpf (0-5) 07/09/18 17:00 Ur Epithelial Cells OCCASIONAL /lpf (FEW) 07/09/18 17:00 Urine Bacteria OCCASIONAL /hpf (NONE SEEN) 07/09/18 17:00 Urine Opiates Screen NEGATIVE (NEGATIVE) 07/09/18 17:00 Urine Methadone Screen NEGATIVE (NEGATIVE) 07/09/18 17:00 Ur Barbiturates Screen NEGATIVE (NEGATIVE) 07/09/18 17:00 Ur Tricyclics Screen POSITIVE (NEGATIVE) H 07/09/18 17:00 Ur Phencyclidine Scrn NEGATIVE (NEGATIVE) 07/09/18 17:00 Amphetamines Screen NEGATIVE (NEGATIVE) 07/09/18 17:00 U Methamphetamines Scrn NEGATIVE (NEGATIVE) 07/09/18 17:00 U Benzodiazepines Scrn POSITIVE (NEGATIVE) H 07/09/18 17:00 U Cocaine Metab Screen NEGATIVE (NEGATIVE) 07/09/18 17:00 U Cannabinoids Screen NEGATIVE (NEGATIVE) 07/09/18 17:00 - Physical Exam Vitals and I&O: Vital Signs Temp 98.0 F 07/11/18 08:00 Pulse 68 07/11/18 08:00 Resp 18 07/11/18 08:00 BP 110/63 07/11/18 08:00 Pulse Ox 100 07/11/18 08:00 Intake & Output 07/10/18 07/11/18 07/11/18 18:59 06:59 18:59 Intake Total 600 240 Balance 600 240 Weight (lbs) 63.957 kg 63.957 kg Intake: Oral 600 240 Other: # Voids 5 3 # Bowel Movements 0 1 Weight Source Bedscale Bedscale Active Medications: Current Medications Divalproex Sodium (Depakote Dr) 500 mg PO BID [facility]; Protocol Stop: 09/08/18 16:59 Last Admin: 07/11/18 08:51 Dose: 500 mg Ferrous Sulfate (Iron) 325 mg PO DAILY [facility] Stop: 09/09/18 08:59 Last Admin: 07/11/18 08:52 Dose: 325 mg Fish Oil ([place] 3) 1,000 mg PO DAILY [facility] Stop: 09/09/18 08:59 Last Admin: 07/11/18 08:51 Dose: 1,000 mg Sodium Chloride (Nacl 0.9%) 1,000 mls @ 40 mls/hr IV .Q24H [facility] Stop: 09/08/18 10:44 Last Admin: 07/10/18 13:14 Dose: 40 mls/hr Pantoprazole Sodium (Protonix) 40 mg PO DAILY [facility] Stop: 09/09/18 08:59 Last Admin: 07/11/18 08:51 Dose: 40 mg Quetiapine Fumarate (Seroquel) 200 mg PO HS [facility]; Protocol Stop: 09/08/18 20:59 Quetiapine Fumarate (Seroquel) 50 mg PO BID [facility]; Protocol Stop: 09/08/18 16:59 Last Admin: 07/11/18 08:51 Dose: 50 mg Sucralfate (Carafate) 1 gm PO TID [facility] Stop: 09/08/18 13:59 Last Admin: 07/11/18 08:52 Dose: 1 gm General: no acute distress, well developed, well nourished HEENT: atraumatic, normocephalic, PERRLA, EOMI, other (head wound) Neck: supple, no thyromegaly Cardiovascular: S1S2, regular Lungs: clear to auscultation bilaterally, clear to percussion Abdomen: soft, no tender, no distended, no mass Extremities: no cyanosis, no clubbing, no edema Neurological: awake, alert - Procedures Procedures: Procedures Procedure Code Date EGD DIAGNOSTIC BRUSH WASH 96705 06/02/11 INJECT/INFUSE NEC 99.29 07/18/12 OTHER ENDOSCOPY OF SM INTEST 45.13 06/02/11 PACKED CELL TRANSFUSION 99.04 03/22/11 THER/PROPH/DIAG INJ SC/IM [id number] 07/18/12 Infectious Disease Assmt/Plan - Problem List Patient Problems: All Active Problems OCCIPITAL LACERATION (Acute) - Assessment Assessment: 1. Head wound. 2. Psychosis. - Plan Plan: Continue wound care.
[2018-07-11] MEDS: Sodium Chloride 0.9% 1,000 ML IV SCH (14:27)
--- NOTE | 2018-07-12 01:19 | Progress Notes ---
DATE: 07/11/2018 PSYCHIATRIC PROGRESS NOTE SUBJECTIVE: Staff was spoken to. The patient is interviewed. Mood is noted to be less irritable. Affect is appropriate today. The patient has been able to verbalize a few concerns. The patient's insight ____. The patient has paranoia, but denies any current hallucinations. The patient has been a little bit more alert today compared to the other day. ASSESSMENT: The patient is still in a semi-catatonic state. PLAN: To continue the patient with the supportive therapy, encouraged the patient to verbalize the concerns rather than to act out. JOB# [id number]
--- NOTE | 2018-07-12 01:22 | Progress Notes ---
DATE: 07/11/2018 PSYCHIATRIC PROGRESS NOTE SUBJECTIVE: Staff was spoken to. The patient is interviewed. Mood is noted to be irritable. Affect is constricted. The patient is still responding to internal stimuli. The patient is kept on 1:1 observation in view of his acute psychosis. The patient is currently on 200 mg of the Seroquel and 500 mg twice a day of the Depakote, able to tolerate the medication. ASSESSMENT: The patient is still psychotic. PLAN: To continue the patient with the current medication and closely monitor him for self-abusive behavior. JOB# [id number]
[2018-07-12] MEDS: Fish Oil 1,000 MG SGL PO SCH (09:40)
[2018-07-12] MEDS: Ferrous Sulfate 325 MG TAB PO SCH (09:40)
[2018-07-12] MEDS: Pantoprazole 40 mg EC Tab PO SCH (09:40)
--- NOTE | 2018-07-12 11:41 | Internal Medicine Prog Note ---
Internal Medicine Subjective - Subjective Patient is:: awake, other (psychotic) Per staff patient has:: no adverse event Internal Medicine Objective - Results Result Diagrams: 07/11/18 05:20 07/11/18 05:20 Recent Labs: Laboratory Last Values WBC 9.9 Th/cmm (4.8-10.8) 07/11/18 05:20 RBC 4.34 Mil/cmm (4.30-5.70) 07/11/18 05:20 Hgb 14.4 gm/dL (12-16) 07/11/18 05:20 Hct 43.0 % (41.0-60) 07/11/18 05:20 MCV 98.9 fl (80-99) 07/11/18 05:20 MCH 33.1 pg (26.0-30.0) H 07/11/18 05:20 MCHC Differential 33.4 pg (28.0-36.0) 07/11/18 05:20 RDW 11.9 % (11.5-20.0) 07/11/18 05:20 Plt Count 164 Th/cmm (150-400) 07/11/18 05:20 MPV 9.8 fl 07/11/18 05:20 Neutrophils % 49.0 % (40.0-80.0) 07/11/18 05:20 Lymphocytes % 28.8 % (20.0-50.0) 07/11/18 05:20 Monocytes % 12.7 % (2.0-10.0) H 07/11/18 05:20 Eosinophils % 5.3 % (0.0-5.0) H 07/11/18 05:20 Basophils % 4.2 % (0.0-2.0) H 07/11/18 05:20 Sodium 132 mEq/L (136-145) L 07/11/18 05:20 Potassium 4.1 mEq/L (3.5-5.1) 07/11/18 05:20 Chloride 103 mEq/L (98-107) 07/11/18 05:20 Carbon Dioxide 25.5 mEq/L (21.0-31.0) 07/11/18 05:20 Anion Gap 7.6 (7.0-16.0) 07/11/18 05:20 BUN 10 mg/dL (7-25) 07/11/18 05:20 Creatinine 0.6 mg/dL (0.7-1.3) L 07/11/18 05:20 Est GFR ( Amer) > 60.0 ml/min (>90) 07/11/18 05:20 Est GFR (Non-Af Amer) > 60.0 ml/min 07/11/18 05:20 BUN/Creatinine Ratio 16.7 07/11/18 05:20 Glucose 93 mg/dL (70-105) 07/11/18 05:20 POC Glucose 104 MG/DL (70 - 105) 07/10/18 07:48 Uric Acid 3.8 mg/dL (4.4-7.6) L 07/11/18 05:20 Calcium 8.5 mg/dL (8.6-10.3) L 07/11/18 05:20 Phosphorus 3.1 mg/dL (2.5-5.0) 07/09/18 17:15 Magnesium 1.9 mg/dL (1.9-2.7) 07/09/18 17:15 Total Bilirubin 0.4 mg/dL (0.3-1.0) 07/11/18 05:20 AST 15 U/L (13-39) 07/11/18 05:20 ALT 16 U/L (7-52) 07/11/18 05:20 Alkaline Phosphatase 51 U/L (34-104) 07/11/18 05:20 Total Protein 6.4 gm/dL (6.0-8.3) 07/11/18 05:20 Albumin 3.5 gm/dL (4.2-5.5) L 07/11/18 05:20 Globulin 2.9 gm/dL 07/11/18 05:20 Albumin/Globulin Ratio 1.2 (1.0-1.8) 07/11/18 05:20 Triglycerides 131 mg/dL (<150) 07/10/18 04:40 Cholesterol 104 mg/dL (<200) 07/10/18 04:40 LDL Cholesterol Direct 36 mg/dL (75-193) L 07/10/18 04:40 HDL Cholesterol 48 mg/dL (23-92) 07/10/18 04:40 TSH 2.70 uIU/ml (0.34-5.60) 07/10/18 04:40 Urine Source CLEAN C 10/15/18 17:00 Urine Color YELLOW 07/09/18 17:00 Urine Clarity CLEAR (CLEAR) 07/09/18 17:00 Urine pH 7.0 (4.6 - 8.0) 07/09/18 17:00 Ur Specific [place] <= 1.005 (1.005-1.030) 07/09/18 17:00 Urine Protein NEGATIVE mg/dL (NEGATIVE) 07/09/18 17:00 Urine Glucose (UA) NEGATIVE mg/dL (NEGATIVE) 07/09/18 17:00 Urine Ketones NEGATIVE mg/dL (NEGATIVE) 07/09/18 17:00 Urine Blood NEGATIVE (NEGATIVE) 07/09/18 17:00 Urine Nitrate NEGATIVE (NEGATIVE) 07/09/18 17:00 Urine Bilirubin NEGATIVE (NEGATIVE) 07/09/18 17:00 Urine Urobilinogen 0.2 E.U./dL (0.2 - 1.0) 07/09/18 17:00 Ur Leukocyte Esterase NEGATIVE (NEGATIVE) 07/09/18 17:00 Urine RBC NONE SEEN /hpf (0-5) 07/09/18 17:00 Urine WBC 0-2 /hpf (0-5) 07/09/18 17:00 Ur Epithelial Cells OCCASIONAL /lpf (FEW) 07/09/18 17:00 Urine Bacteria OCCASIONAL /hpf (NONE SEEN) 07/09/18 17:00 Urine Opiates Screen NEGATIVE (NEGATIVE) 07/09/18 17:00 Urine Methadone Screen NEGATIVE (NEGATIVE) 07/09/18 17:00 Ur Barbiturates Screen NEGATIVE (NEGATIVE) 07/09/18 17:00 Valproic Acid 33.2 ug/mL (50.0-100.0) L 07/12/18 05:56 Ur Tricyclics Screen POSITIVE (NEGATIVE) H 07/09/18 17:00 Ur Phencyclidine Scrn NEGATIVE (NEGATIVE) 07/09/18 17:00 Amphetamines Screen NEGATIVE (NEGATIVE) 07/09/18 17:00 U Methamphetamines Scrn NEGATIVE (NEGATIVE) 07/09/18 17:00 U Benzodiazepines Scrn POSITIVE (NEGATIVE) H 07/09/18 17:00 U Cocaine Metab Screen NEGATIVE (NEGATIVE) 07/09/18 17:00 U Cannabinoids Screen NEGATIVE (NEGATIVE) 07/09/18 17:00 - Physical Exam Vitals and I&O: Vital Signs Temp 97.7 F 07/12/18 04:00 Pulse 61 07/12/18 04:00 Resp 18 07/12/18 04:00 BP 106/66 07/12/18 04:00 Pulse Ox 98 07/12/18 04:00 Intake & Output 07/11/18 07/12/18 07/12/18 18:59 06:59 18:59 Intake Total 1000 760 Balance 1000 760 Weight (lbs) 63.276 kg Intake: Intake, IV Amount 1000 Sodium Chloride 0.9% 1, 1000 000 ml @ 40 mls/hr IV . Q24H [facility] Rx#:[id number] Oral 760 Other: # Voids 3 # Bowel Movements 1 Weight Source Bedscale Active Medications: Current Medications Divalproex Sodium (Depakote Dr) 500 mg PO BID [facility]; Protocol Stop: 09/08/18 16:59 Last Admin: 07/12/18 09:40 Dose: 500 mg Ferrous Sulfate (Iron) 325 mg PO DAILY [facility] Stop: 09/09/18 08:59 Last Admin: 07/12/18 09:40 Dose: 325 mg Fish Oil ([place] 3) 1,000 mg PO DAILY [facility] Stop: 09/09/18 08:59 Last Admin: 07/12/18 09:40 Dose: 1,000 mg Sodium Chloride (Nacl 0.9%) 1,000 mls @ 40 mls/hr IV .Q24H [facility] Stop: 09/08/18 10:44 Last Admin: 07/11/18 14:27 Dose: 40 mls/hr Mupirocin (Bactroban Oint) 1 appl NS BID [facility] Stop: 07/16/18 09:01 Last Admin: 07/12/18 09:40 Dose: 1 appl Pantoprazole Sodium (Protonix) 40 mg PO DAILY [facility] Stop: 09/09/18 08:59 Last Admin: 07/12/18 09:40 Dose: 40 mg Quetiapine Fumarate (Seroquel) 200 mg PO HS [facility]; Protocol Stop: 09/08/18 20:59 Last Admin: 07/11/18 20:24 Dose: 200 mg Sucralfate (Carafate) 1 gm PO TID [facility] Stop: 09/08/18 13:59 Last Admin: 07/12/18 09:40 Dose: 1 gm General: alert Neck: Supple Lungs: CTAB Cardiovascular: Normal S1, Normal S2 Abdomen: soft, non-tender Extremities: clear, no edema Neurological: no change - Procedures Procedures: Procedures Procedure Code Date EGD DIAGNOSTIC BRUSH WASH 57395 06/02/11 INJECT/INFUSE NEC 99.29 07/18/12 OTHER ENDOSCOPY OF SM INTEST 45.13 06/02/11 PACKED CELL TRANSFUSION 99.04 03/22/11 THER/PROPH/DIAG INJ SC/IM 94972 07/18/12 Internal Medicine Assmt/Plan - Assessment Assessment: scalp laceration psychosis - Plan Plan: cpm
--- NOTE | 2018-07-12 13:31 | Progress Notes ---
DATE: 07/12/2018 SUBJECTIVE: Staff was spoken to. The patient is interviewed. Mood is noted to be irritable. Affect is constricted. The patient is isolative and withdrawn. Coping skills are noted to be poor at this time. Paranoid delusions are noted, but the patient denies any current hallucinations. The patient is being closely monitored for self-abusive behavior. ASSESSMENT: The patient is still impulsive and paranoid. PLAN: To continue the patient with the supportive therapy, encouraged the patient to verbalize the concerns rather than to act out. JOB# [id number]
[2018-07-12] MEDS: Sodium Chloride 0.9% 1,000 ML IV SCH (16:51)
[2018-07-13 05:04] LABS: MEAN CELL VOLUME 100.5 fl (80-99); RED BLOOD COUNT 3.98 Mil/cmm (4.30-5.70)
[2018-07-13 05:09] LABS: % BASOPHILS 0.5 % (0.0-2.0); % EOSINOPHILS 7.2 % (0.0-5.0); % LYMPHOCYTES 35.4 % (20.0-50.0); % MONOCYTES 11.4 % (2.0-10.0); % NEUTROPHILS 45.5 % (40.0-80.0); BASOPHILE ABSOLUTE 0.1 Th/cumm (0-0.2); EOSINOPHILE ABSOLUTE 0.8 Th/cmm (0.1-0.4); HEMOGLOBIN 13.3 gm/dL (12-16); MEAN CORPUSCULAR HEMOGLOBIN 33.5 pg (26.0-30.0); MEAN CORPUSCULAR HGB CONC 33.3 pg (28.0-36.0); MONOCYTE ABSOLUTE 1.3 Th/cmm (0.3-1.0); PLATELET COUNT 165 Th/cmm (150-400); RED CELL DISTRIBUTION WIDTH 11.7 % (11.5-20.0); WHITE BLOOD COUNT 11.2 Th/cmm (4.8-10.8)
[2018-07-13 05:14] LABS: ALB/GLOB RATIO 1.3 (1.0-1.8); ALBUMIN 3.5 gm/dL (4.2-5.5); ALKALINE PHOSPHATASE 47 U/L (34-104); ANION GAP 8.9 (7.0-16.0); BILIRUBIN,TOTAL 0.3 mg/dL (0.3-1.0); BUN - UREA NITROGEN 12 mg/dL (7-25); CALCIUM SERUM 8.5 mg/dL (8.6-10.3); CARBON DIOXIDE 27.8 mEq/L (21.0-31.0); CHLORIDE 102 mEq/L (98-107); CREATININE - SERUM 0.6 mg/dL (0.7-1.3); GFR AFRICAN-AMERICAN > 60.0 ml/min (>90); GFR NON AFRICAN-AMERICAN > 60.0 ml/min; GLUCOSE 89 mg/dL (70-105); MAGNESIUM 1.7 mg/dL (1.9-2.7); POTASSIUM SERUM 3.7 mEq/L (3.5-5.1); SGOT 17 U/L (13-39); SGPT/ALT 22 U/L (7-52); SODIUM SERUM 135 mEq/L (136-145); TOTAL PROTEIN,SERUM 6.3 gm/dL (6.0-8.3)
[2018-07-13] MEDS: Ferrous Sulfate 325 MG TAB PO SCH (09:36)
[2018-07-13] MEDS: Pantoprazole 40 mg EC Tab PO SCH (09:36)
[2018-07-13] MEDS: Fish Oil 1,000 MG SGL PO SCH (09:36)
--- NOTE | 2018-07-13 12:15 | Internal Medicine Prog Note ---
Internal Medicine Subjective - Subjective Service Date: 07/13/18 Patient is:: awake, verbal, other Per staff patient has:: no adverse event Internal Medicine Objective - Results Result Diagrams: 07/13/18 04:30 07/13/18 04:30 Recent Labs: Laboratory Last Values WBC 11.2 Th/cmm (4.8-10.8) H 07/13/18 04:30 RBC 3.98 Mil/cmm (4.30-5.70) L 07/13/18 04:30 Hgb 13.3 gm/dL (12-16) 07/13/18 04:30 Hct 40.0 % (41.0-60) L 07/13/18 04:30 MCV 100.5 fl (80-99) H 07/13/18 04:30 MCH 33.5 pg (26.0-30.0) H 07/13/18 04:30 MCHC Differential 33.3 pg (28.0-36.0) 07/13/18 04:30 RDW 11.7 % (11.5-20.0) 07/13/18 04:30 Plt Count 165 Th/cmm (150-400) 07/13/18 04:30 MPV 9.0 fl 07/13/18 04:30 Neutrophils % 45.5 % (40.0-80.0) 07/13/18 04:30 Lymphocytes % 35.4 % (20.0-50.0) 07/13/18 04:30 Monocytes % 11.4 % (2.0-10.0) H 07/13/18 04:30 Eosinophils % 7.2 % (0.0-5.0) H 07/13/18 04:30 Basophils % 0.5 % (0.0-2.0) 07/13/18 04:30 Sodium 135 mEq/L (136-145) L 07/13/18 04:30 Potassium 3.7 mEq/L (3.5-5.1) 07/13/18 04:30 Chloride 102 mEq/L (98-107) 07/13/18 04:30 Carbon Dioxide 27.8 mEq/L (21.0-31.0) 07/13/18 04:30 Anion Gap 8.9 (7.0-16.0) 07/13/18 04:30 BUN 12 mg/dL (7-25) 07/13/18 04:30 Creatinine 0.6 mg/dL (0.7-1.3) L 07/13/18 04:30 Est GFR ( Amer) > 60.0 ml/min (>90) 07/13/18 04:30 Est GFR (Non-Af Amer) > 60.0 ml/min 07/13/18 04:30 BUN/Creatinine Ratio 20.0 07/13/18 04:30 Glucose 89 mg/dL (70-105) 07/13/18 04:30 POC Glucose 104 MG/DL (70 - 105) 07/10/18 07:48 Uric Acid 3.8 mg/dL (4.4-7.6) L 07/11/18 05:20 Calcium 8.5 mg/dL (8.6-10.3) L 07/13/18 04:30 Phosphorus 3.1 mg/dL (2.5-5.0) 07/09/18 17:15 Magnesium 1.7 mg/dL (1.9-2.7) L 07/13/18 04:30 Total Bilirubin 0.3 mg/dL (0.3-1.0) 07/13/18 04:30 AST 17 U/L (13-39) 07/13/18 04:30 ALT 22 U/L (7-52) 07/13/18 04:30 Alkaline Phosphatase 47 U/L (34-104) 07/13/18 04:30 Total Protein 6.3 gm/dL (6.0-8.3) 07/13/18 04:30 Albumin 3.5 gm/dL (4.2-5.5) L 07/13/18 04:30 Globulin 2.8 gm/dL 07/13/18 04:30 Albumin/Globulin Ratio 1.3 (1.0-1.8) 07/13/18 04:30 Triglycerides 131 mg/dL (<150) 07/10/18 04:40 Cholesterol 104 mg/dL (<200) 07/10/18 04:40 LDL Cholesterol Direct 36 mg/dL (75-193) L 07/10/18 04:40 HDL Cholesterol 48 mg/dL (23-92) 07/10/18 04:40 TSH 2.70 uIU/ml (0.34-5.60) 07/10/18 04:40 Urine Source CLEAN C 07/09/18 17:00 Urine Color YELLOW 07/09/18 17:00 Urine Clarity CLEAR (CLEAR) 07/09/18 17:00 Urine pH 7.0 (4.6 - 8.0) 07/09/18 17:00 Ur Specific [place] <= 1.005 (1.005-1.030) 07/09/18 17:00 Urine Protein NEGATIVE mg/dL (NEGATIVE) 07/09/18 17:00 Urine Glucose (UA) NEGATIVE mg/dL (NEGATIVE) 07/09/18 17:00 Urine Ketones NEGATIVE mg/dL (NEGATIVE) 07/09/18 17:00 Urine Blood NEGATIVE (NEGATIVE) 07/09/18 17:00 Urine Nitrate NEGATIVE (NEGATIVE) 07/09/18 17:00 Urine Bilirubin NEGATIVE (NEGATIVE) 07/09/18 17:00 Urine Urobilinogen 0.2 E.U./dL (0.2 - 1.0) 07/09/18 17:00 Ur Leukocyte Esterase NEGATIVE (NEGATIVE) 07/09/18 17:00 Urine RBC NONE SEEN /hpf (0-5) 07/09/18 17:00 Urine WBC 0-2 /hpf (0-5) 07/09/18 17:00 Ur Epithelial Cells OCCASIONAL /lpf (FEW) 07/09/18 17:00 Urine Bacteria OCCASIONAL /hpf (NONE SEEN) 07/09/18 17:00 Urine Opiates Screen NEGATIVE (NEGATIVE) 07/09/18 17:00 Urine Methadone Screen NEGATIVE (NEGATIVE) 07/09/18 17:00 Ur Barbiturates Screen NEGATIVE (NEGATIVE) 07/09/18 17:00 Valproic Acid 33.2 ug/mL (50.0-100.0) L 07/12/18 05:56 Ur Tricyclics Screen POSITIVE (NEGATIVE) H 07/09/18 17:00 Ur Phencyclidine Scrn NEGATIVE (NEGATIVE) 07/09/18 17:00 Amphetamines Screen NEGATIVE (NEGATIVE) 07/09/18 17:00 U Methamphetamines Scrn NEGATIVE (NEGATIVE) 07/09/18 17:00 U Benzodiazepines Scrn POSITIVE (NEGATIVE) H 07/09/18 17:00 U Cocaine Metab Screen NEGATIVE (NEGATIVE) 07/09/18 17:00 U Cannabinoids Screen NEGATIVE (NEGATIVE) 07/09/18 17:00 - Physical Exam Vitals and I&O: Vital Signs Temp 98 F 07/13/18 08:00 Pulse 54 07/13/18 08:00 Resp 18 07/13/18 08:00 BP 112/64 07/13/18 08:00 Pulse Ox 98 07/13/18 08:00 Intake & Output 07/12/18 07/13/18 07/13/18 18:59 06:59 18:59 Intake Total 1000 Balance 1000 Weight (lbs) 139 lb 8 oz 140 lb 11.2 oz Intake: Intake, IV Amount 1000 Sodium Chloride 0.9% 1, 1000 000 ml @ 40 mls/hr IV . Q24H [facility] Rx#:[id number] Other: Weight Source Bedscale Bedscale Active Medications: Current Medications Divalproex Sodium (Depakote Dr) 500 mg PO BID [facility]; Protocol Stop: 09/08/18 16:59 Last Admin: 07/13/18 09:36 Dose: 500 mg Ferrous Sulfate (Iron) 325 mg PO DAILY ANIL Stop: 09/09/18 08:59 Last Admin: 07/13/18 09:36 Dose: 325 mg Fish Oil ([place] 3) 1,000 mg PO DAILY ANIL Stop: 09/09/18 08:59 Last Admin: 07/13/18 09:36 Dose: 1,000 mg Sodium Chloride (Nacl 0.9%) 1,000 mls @ 40 mls/hr IV .Q24H ANIL Stop: 09/08/18 10:44 Last Admin: 07/12/18 16:51 Dose: 40 mls/hr Mupirocin (Bactroban Oint) 1 appl NS BID ANIL Stop: 07/16/18 09:01 Last Admin: 07/13/18 09:36 Dose: 1 appl Pantoprazole Sodium (Protonix) 40 mg PO DAILY ANIL Stop: 09/09/18 08:59 Last Admin: 07/13/18 09:36 Dose: 40 mg Quetiapine Fumarate (Seroquel) 200 mg PO HS [facility]; Protocol Stop: 09/08/18 20:59 Last Admin: 07/12/18 21:18 Dose: 200 mg Sucralfate (Carafate) 1 gm PO TID ANIL Stop: 09/08/18 13:59 Last Admin: 07/13/18 09:36 Dose: 1 gm General: alert Neck: Supple Lungs: CTAB Cardiovascular: Normal S1, Normal S2 Abdomen: soft, non-tender Extremities: clear, no edema Neurological: no change - Procedures Procedures: Procedures Procedure Code Date EGD DIAGNOSTIC BRUSH WASH 73071 06/02/11 INJECT/INFUSE NEC 99.29 07/18/12 OTHER ENDOSCOPY OF SM INTEST 45.13 06/02/11 PACKED CELL TRANSFUSION 99.04 03/22/11 THER/PROPH/DIAG INJ SC/IM 12405 07/18/12 Internal Medicine Assmt/Plan - Assessment Assessment: Current Active Problems Problem Status Onset OCCIPITAL LACERATION Acute hyponatremia s/p self inflicted post scalp laceration psychosis - Plan Plan: follow up labs in am continue the rest of the orders
--- NOTE | 2018-07-13 12:44 | Infectious Disease Prog Note ---
Infectious Disease Subjective - Review of Systems Service Date: 07/13/18 Subjective: There is no new change, no fever. Infectious Disease Objective - Results Result Diagrams: 07/13/18 04:30 07/13/18 04:30 Recent Labs: Laboratory Last Values WBC 11.2 Th/cmm (4.8-10.8) H 07/13/18 04:30 RBC 3.98 Mil/cmm (4.30-5.70) L 07/13/18 04:30 Hgb 13.3 gm/dL (12-16) 07/13/18 04:30 Hct 40.0 % (41.0-60) L 07/13/18 04:30 MCV 100.5 fl (80-99) H 07/13/18 04:30 MCH 33.5 pg (26.0-30.0) H 07/13/18 04:30 MCHC Differential 33.3 pg (28.0-36.0) 07/13/18 04:30 RDW 11.7 % (11.5-20.0) 07/13/18 04:30 Plt Count 165 Th/cmm (150-400) 07/13/18 04:30 MPV 9.0 fl 07/13/18 04:30 Neutrophils % 45.5 % (40.0-80.0) 07/13/18 04:30 Lymphocytes % 35.4 % (20.0-50.0) 07/13/18 04:30 Monocytes % 11.4 % (2.0-10.0) H 07/13/18 04:30 Eosinophils % 7.2 % (0.0-5.0) H 07/13/18 04:30 Basophils % 0.5 % (0.0-2.0) 07/13/18 04:30 Sodium 135 mEq/L (136-145) L 07/13/18 04:30 Potassium 3.7 mEq/L (3.5-5.1) 07/13/18 04:30 Chloride 102 mEq/L (98-107) 07/13/18 04:30 Carbon Dioxide 27.8 mEq/L (21.0-31.0) 07/13/18 04:30 Anion Gap 8.9 (7.0-16.0) 07/13/18 04:30 BUN 12 mg/dL (7-25) 07/13/18 04:30 Creatinine 0.6 mg/dL (0.7-1.3) L 07/13/18 04:30 Est GFR ( Amer) > 60.0 ml/min (>90) 07/13/18 04:30 Est GFR (Non-Af Amer) > 60.0 ml/min 07/13/18 04:30 BUN/Creatinine Ratio 20.0 07/13/18 04:30 Glucose 89 mg/dL (70-105) 07/13/18 04:30 POC Glucose 104 MG/DL (70 - 105) 07/10/18 07:48 Uric Acid 3.8 mg/dL (4.4-7.6) L 07/11/18 05:20 Calcium 8.5 mg/dL (8.6-10.3) L 07/13/18 04:30 Phosphorus 3.1 mg/dL (2.5-5.0) 07/09/18 17:15 Magnesium 1.7 mg/dL (1.9-2.7) L 07/13/18 04:30 Total Bilirubin 0.3 mg/dL (0.3-1.0) 07/13/18 04:30 AST 17 U/L (13-39) 07/13/18 04:30 ALT 22 U/L (7-52) 07/13/18 04:30 Alkaline Phosphatase 47 U/L (34-104) 07/13/18 04:30 Total Protein 6.3 gm/dL (6.0-8.3) 07/13/18 04:30 Albumin 3.5 gm/dL (4.2-5.5) L 07/13/18 04:30 Globulin 2.8 gm/dL 07/13/18 04:30 Albumin/Globulin Ratio 1.3 (1.0-1.8) 07/13/18 04:30 Triglycerides 131 mg/dL (<150) 07/10/18 04:40 Cholesterol 104 mg/dL (<200) 07/10/18 04:40 LDL Cholesterol Direct 36 mg/dL (75-193) L 07/10/18 04:40 HDL Cholesterol 48 mg/dL (23-92) 07/10/18 04:40 TSH 2.70 uIU/ml (0.34-5.60) 07/10/18 04:40 Urine Source CLEAN C 07/09/18 17:00 Urine Color YELLOW 07/09/18 17:00 Urine Clarity CLEAR (CLEAR) 07/09/18 17:00 Urine pH 7.0 (4.6 - 8.0) 07/09/18 17:00 Ur Specific [place] <= 1.005 (1.005-1.030) 07/09/18 17:00 Urine Protein NEGATIVE mg/dL (NEGATIVE) 07/09/18 17:00 Urine Glucose (UA) NEGATIVE mg/dL (NEGATIVE) 07/09/18 17:00 Urine Ketones NEGATIVE mg/dL (NEGATIVE) 07/09/18 17:00 Urine Blood NEGATIVE (NEGATIVE) 07/09/18 17:00 Urine Nitrate NEGATIVE (NEGATIVE) 07/09/18 17:00 Urine Bilirubin NEGATIVE (NEGATIVE) 07/09/18 17:00 Urine Urobilinogen 0.2 E.U./dL (0.2 - 1.0) 07/09/18 17:00 Ur Leukocyte Esterase NEGATIVE (NEGATIVE) 07/09/18 17:00 Urine RBC NONE SEEN /hpf (0-5) 07/09/18 17:00 Urine WBC 0-2 /hpf (0-5) 07/09/18 17:00 Ur Epithelial Cells OCCASIONAL /lpf (FEW) 07/09/18 17:00 Urine Bacteria OCCASIONAL /hpf (NONE SEEN) 07/09/18 17:00 Urine Opiates Screen NEGATIVE (NEGATIVE) 07/09/18 17:00 Urine Methadone Screen NEGATIVE (NEGATIVE) 07/09/18 17:00 Ur Barbiturates Screen NEGATIVE (NEGATIVE) 07/09/18 17:00 Valproic Acid 33.2 ug/mL (50.0-100.0) L 07/12/18 05:56 Ur Tricyclics Screen POSITIVE (NEGATIVE) H 07/09/18 17:00 Ur Phencyclidine Scrn NEGATIVE (NEGATIVE) 07/09/18 17:00 Amphetamines Screen NEGATIVE (NEGATIVE) 07/09/18 17:00 U Methamphetamines Scrn NEGATIVE (NEGATIVE) 07/09/18 17:00 U Benzodiazepines Scrn POSITIVE (NEGATIVE) H 07/09/18 17:00 U Cocaine Metab Screen NEGATIVE (NEGATIVE) 07/09/18 17:00 U Cannabinoids Screen NEGATIVE (NEGATIVE) 07/09/18 17:00 - Physical Exam Vitals and I&O: Vital Signs Temp 98.0 F 07/13/18 12:05 Pulse 54 07/13/18 12:05 Resp 18 07/13/18 12:05 BP 112/64 07/13/18 12:05 Pulse Ox 98 07/13/18 08:00 Intake & Output 07/12/18 07/13/18 07/13/18 18:59 06:59 18:59 Intake Total 1000 Balance 1000 Weight (lbs) 63.276 kg 63.82 kg Intake: Intake, IV Amount 1000 Sodium Chloride 0.9% 1, 1000 000 ml @ 40 mls/hr IV . Q24H [facility] Rx#:[id number] Other: Weight Source Bedscale Bedscale Active Medications: Current Medications Divalproex Sodium (Depakote Dr) 500 mg PO BID [facility]; Protocol Stop: 09/08/18 16:59 Last Admin: 07/13/18 09:36 Dose: 500 mg Ferrous Sulfate (Iron) 325 mg PO DAILY ANIL Stop: 09/09/18 08:59 Last Admin: 07/13/18 09:36 Dose: 325 mg Fish Oil ([place] 3) 1,000 mg PO DAILY ANIL Stop: 09/09/18 08:59 Last Admin: 07/13/18 09:36 Dose: 1,000 mg Sodium Chloride (Nacl 0.9%) 1,000 mls @ 40 mls/hr IV .Q24H [facility] Stop: 09/08/18 10:44 Last Admin: 07/12/18 16:51 Dose: 40 mls/hr Mupirocin (Bactroban Oint) 1 appl NS BID ANIL Stop: 07/16/18 09:01 Last Admin: 07/13/18 09:36 Dose: 1 appl Pantoprazole Sodium (Protonix) 40 mg PO DAILY ANIL Stop: 09/09/18 08:59 Last Admin: 07/13/18 09:36 Dose: 40 mg Quetiapine Fumarate (Seroquel) 200 mg PO HS [facility]; Protocol Stop: 09/08/18 20:59 Last Admin: 07/12/18 21:18 Dose: 200 mg Sucralfate (Carafate) 1 gm PO TID ANIL Stop: 09/08/18 13:59 Last Admin: 07/13/18 09:36 Dose: 1 gm General: no acute distress, well developed, well nourished HEENT: normocephalic, PERRLA, EOMI, moist mucous membrane, other (head wound) Neck: supple, no thyromegaly, no lymphadenopathy Cardiovascular: S1S2, regular Lungs: clear to auscultation bilaterally, clear to percussion Abdomen: soft, no tender, no distended, no mass Extremities: no cyanosis, no clubbing, no edema Neurological: awake, alert, oriented Skin: intact - Procedures Procedures: Procedures Procedure Code Date EGD DIAGNOSTIC BRUSH WASH 08938 06/02/11 INJECT/INFUSE NEC 99.29 07/18/12 OTHER ENDOSCOPY OF SM INTEST 45.13 06/02/11 PACKED CELL TRANSFUSION 99.04 03/22/11 THER/PROPH/DIAG INJ SC/IM 46859 07/18/12 Infectious Disease Assmt/Plan - Problem List Patient Problems: All Active Problems OCCIPITAL LACERATION (Acute) - Assessment Assessment: 1. Head wound. 2. Psychosis. 3. MRSA colonization. - Plan Plan: Continue wound care.
--- NOTE | 2018-07-13 21:10 | Progress Notes ---
DATE: 07/13/2018 PSYCHIATRIC PROGRESS NOTE SUBJECTIVE: Staff was spoken to. The patient is interviewed. Mood is noted to be anxious. Affect is appropriate. He is not suicidal or homicidal. Insight and judgment are noted to be improving. Impulse control seems to be fair. The patient is not self-abusive today. No side effects to the medications are noted. The patient is pleased with the progress and the medical case manager has been spoken to and if it is okay with the primary care physician, possibly the patient can be discharged back to [facility] for further followup. JOB# [id number]
== END 2018-07-13 17:15 | DRG 641 ==
LOC: ER 15:38 → MSI 21:20
PROVIDERS: ADMIT Internal Medicine; ATTEND Internal Medicine
PROC: 0HQ0XZZ Repair Scalp Skin, External Approach (ICD-10-PCS; principal; 2018-07-09)
DX: E87.1 Hypo-osmolality and hyponatremia (principal); S01.01XA Laceration without foreign body of scalp, initial encounter; F29 Unspecified psychosis not due to a substance or known physiological condition; Z66 Do not resuscitate; F25.9 Schizoaffective disorder, unspecified; J44.9 Chronic obstructive pulmonary disease, unspecified; F41.9 Anxiety disorder, unspecified; S01.90XA Unspecified open wound of unspecified part of head, initial encounter; M62.81 Muscle weakness (generalized); K21.9 Gastro-esophageal reflux disease without esophagitis; X83.8XXA Intentional self-harm by other specified means, initial encounter; Y93.89 Activity, other specified; Y92.89 Other specified places as the place of occurrence of the external cause; Y99.8 Other external cause status; Z22.322 Carrier or suspected carrier of Methicillin resistant Staphylococcus aureus
CPT/HCPCS: 36415-UA; 70450-TC; 80048-TC; 80053-TC; 80061-TC; 80164-TC; 80307; 81001-TC; 82948-90; 83735-TC; 84100-TC; 84443-TC; 84550-TC; 85025-TC; J0696; J7030; X6488; Z7610